=== PATIENT | male | born 1995 | race American Indian/Alaskan Native ===

== ENCOUNTER 2019-02-24 21:15 | Emergency (ER) | payer BC ==
[2019-02-24 22:03] VITALS: BP 123/67
--- NOTE | 2019-02-24 22:09 | Emergency Department Report ---
Blank Doc - Documentation Documentation: 23-year-old male that presents with left hip pain. This initial assessment/diagnostic orders/clinical plan/treatment(s) is/are subject to change based on patient's health status, clinical progression and re- assessment by fellow clinical providers in the ED. Further treatment and workup at subsequent clinical providers discretion. Patient/guardians urged not to elope from the ED as their condition may be serious if not clinically assessed and managed. Initial orders include: 1- Patient sent to [facility] for further evaluation and treatment 2- xrays
--- NOTE | 2019-02-24 22:47 | XRay Report ---
LEFT HIP 2 VIEWS. INDICATION / CLINICAL INFORMATION: hip pain COMPARISON: None available. FINDINGS: BONES / JOINT(S): No acute fracture or subluxation. No significant arthritis. SOFT TISSUES: No significant abnormality. ADDITIONAL FINDINGS: None. Signer Name: Joao Roberson MD Signed: 02/24/2019 10:43 PM Workstation Name: [id number]
[2019-02-25] MEDS ORDERED: IBUPROFEN 600 MG TAB PO ONE (00:33)
[2019-02-25] MEDS ORDERED: predniSONE 20 MG TAB PO ONE (00:33)
--- NOTE | 2019-02-25 00:33 | Emergency Department Report ---
ED Extremity Problem HPI - General Chief complaint: Extremity Injury, Lower Stated complaint: LEFT HIP PAIN Time Seen by Provider: 02/24/19 22:09 Source: patient Mode of arrival: Ambulatory Limitations: No Limitations - History of Present Illness Initial comments: Patient is a 24-year-old AA male with a history of chronic left hip pain from old sports injuries and who presents to the ED with complaint of acute exacerbation of his chronic left hip pain for the last 2 weeks worse in the last 2 days. Patient denies fall, traumatic injury, nausea, vomiting, hematuria, testicular pain, dysuria, numbness and tingling or weakness of left leg, low back pain, chest pain or shortness of breath, heavy lifting or traumatic injury or fall. MD Complaint: extremity pain (left hip), joint paint (left hip) -: Gradual, year(s) (over 12 months) Location: left, lower extremity (hip pain) History of Same: Yes (chronic left hip pain) -: Yes arthralgia Radiation: distal Severity scale (0 -10): 8 Quality: aching, sharp Consistency: intermittent Improves with: nothing Worsens with: weight bearing, walking, exertion, palpation Associated Symptoms: denies other symptoms, arthralgias. denies: chest pain, shortness of breath, fever, myalgias, rash - Related Data Previous Rx's Medication Instructions Recorded Last Taken Type Naproxen 500 mg PO Q12H PRN #30 tablet 02/25/19 Unknown Rx predniSONE [Deltasone] 40 mg PO QDAY #12 tab 02/25/19 Unknown Rx tiZANidine [Zanaflex 4mg TAB] 4 mg PO QHS PRN #15 tablet 02/25/19 Unknown Rx Allergies Allergy/AdvReac Type Severity Reaction Status Date / Time No Known Allergies Allergy Verified 02/24/19 21:19 ED Review of Systems ROS: Stated complaint: LEFT HIP PAIN Other details as noted in HPI Constitutional: denies: chills, fever Eyes: denies: eye pain, eye discharge, vision change ENT: denies: ear pain, throat pain Respiratory: denies: cough, shortness of breath, wheezing Cardiovascular: denies: chest pain, palpitations Endocrine: no symptoms reported Gastrointestinal: denies: abdominal pain, nausea, diarrhea Genitourinary: denies: urgency, dysuria Musculoskeletal: arthralgia (left hip), myalgia. denies: back pain, joint swelling Skin: denies: rash, lesions Neurological: denies: headache, weakness, paresthesias Psychiatric: denies: anxiety, depression Hematological/Lymphatic: denies: easy bleeding, easy bruising ED Past Medical Hx - Past Medical History Previous Medical History?: No - Surgical History Past Surgical History?: No - Social History Smoking Status: Never Smoker Substance Use Type: None - Medications Home Medications: Home Medications Medication Instructions Recorded Confirmed Last Taken Type Naproxen 500 mg PO Q12H PRN #30 tablet 02/25/19 Unknown Rx predniSONE [Deltasone] 40 mg PO QDAY #12 tab 02/25/19 Unknown Rx tiZANidine [Zanaflex 4mg TAB] 4 mg PO QHS PRN #15 tablet 02/25/19 Unknown Rx ED Physical Exam - General Limitations: No Limitations General appearance: alert, in no apparent distress - Head Head exam: Present: atraumatic, normocephalic, normal inspection - Eye Eye exam: Present: normal appearance, PERRL, EOMI - ENT ENT exam: Present: normal exam, normal orophraynx, mucous membranes moist, TM's normal bilaterally, normal external ear exam - Neck Neck exam: Present: normal inspection, full ROM. Absent: tenderness - Respiratory Respiratory exam: Present: normal lung sounds bilaterally. Absent: respiratory distress, wheezes, rales, rhonchi, chest wall tenderness, accessory muscle use, decreased breath sounds - Cardiovascular Cardiovascular Exam: Present: regular rate, normal rhythm, normal heart sounds. Absent: systolic murmur, diastolic murmur, rubs, gallop - GI/Abdominal GI/Abdominal exam: Present: soft, normal bowel sounds. Absent: tenderness, guarding, hyperactive bowel sounds, hypoactive bowel sounds - Extremities Exam Extremities exam: Present: normal inspection, full ROM, tenderness (left hip tenderness), normal capillary refill. Absent: pedal edema, joint swelling - Back Exam Back exam: Present: normal inspection, full ROM. Absent: tenderness, CVA tenderness (R), muscle spasm, paraspinal tenderness - Neurological Exam Neurological exam: Present: alert, oriented X3, CN II-XII intact, normal gait, reflexes normal - Psychiatric Psychiatric exam: Present: normal affect, normal mood - Skin Skin exam: Present: warm, dry, intact, normal color. Absent: rash ED Course Vital Signs 02/24/19 22:01 Temperature 98.4 F Pulse Rate 97 H Respiratory 18 Rate Blood Pressure 123/67 O2 Sat by Pulse 98 Oximetry ED Medical Decision Making - Radiology Data interpreted by me: Left hip x-ray shows no acute fractures or subluxations. - Medical Decision Making This is a 23-year-old male with a history of chronic left hip pain from old sports injuries presents to the ED with left hip pain exacerbation for the last 2 weeks worse in the last 2 days. In the ED, patient is alert and oriented 3 and is not in distress. Patient was treated for pain in the ED and left hip x- ray shows no acute fractures or subluxations. Patient was discharged home on medications and advised to follow-up with his primary care physician in 5-7 days for reevaluation or return to the ED immediately if symptoms get worse. - Differential Diagnosis hip bursitis; hip osteoathritis; muscle strain; muscle spasm Critical care attestation.: If time is entered above; I have spent that time in minutes in the direct care of this critically ill patient, excluding procedure time. ED Disposition Clinical Impression: Chronic left hip pain, Strain of muscle, fascia and tendon of left hip, initial encounter Bursitis of left hip Qualifiers: Hip bursitis location: unspecified Qualified Code(s): M70.72 - Other bursitis of hip, left hip Disposition: TO HOME OR SELFCARE Is pt being admited?: No Does the pt Need Aspirin: No Condition: Stable Instructions: Muscle Strain (ED), Arthralgia (ED), Hip Bursitis (ED) Additional Instructions: Take medications with food, drink plenty of fluids and follow-up. Primary care physician in 7-10 days for reevaluation. Return to the ED immediately if symptoms get worse. Prescriptions: tiZANidine [Zanaflex 4mg TAB] 4 mg PO QHS PRN #15 tablet PRN Reason: Muscle Spasm predniSONE [Deltasone] 40 mg PO QDAY #12 tab Naproxen 500 mg PO Q12H PRN #30 tablet PRN Reason: Pain , Severe (7-10) Referrals: [facility] [Outside] - 7-10 days Forms: Work/School Release Form(ED) Time of Disposition: 00:30 Print Language: MACEDONIAN
== END 2019-02-25 01:00 | disposition home or self-care (01) ==
LOC: ED 21:15
DX: S76.012A Strain of muscle, fascia and tendon of left hip, initial encounter (principal); M70.72 Other bursitis of hip, left hip; Z79.899 Other long term (current) drug therapy; X58.XXXA Exposure to other specified factors, initial encounter; Y93.89 Activity, other specified; Y92.89 Other specified places as the place of occurrence of the external cause; Y99.8 Other external cause status
CPT/HCPCS: 73502; 99283; J7512